=== PATIENT | male | born 1955 | race Caucasian/White ===

== ENCOUNTER 2020-11-18 11:03 | Observation (INO) | payer OTHER ==
[~2020-11-18] VITALS: Ht 177.8 cm; Wt 75.9 kg
[2020-11-18 11:58] LABS: HEMOGLOBIN 14.1 gm/dl (14.0-17.5); RED BLOOD COUNT 4.72 M/UL (4.20-5.50); WHITE BLOOD COUNT 19.2 K/UL (4.5-11.0)
[2020-11-18 12:35] LABS: BUN/CREATININE RATIO 20 (0-10)
[2020-11-18] MEDS ORDERED: ATORVASTATIN CA40 MG PO (19:30)
[2020-11-18] MEDS ORDERED: CLOPIDOGREL75 MG PO (19:30)
[2020-11-18] MEDS ORDERED: OXYCODON-ACETA1 EAC1 PO (19:31)
[2020-11-18] MEDS ORDERED: LISINOPRIL-HCT1 EAC1 PO (19:31)
[2020-11-18] MEDS ORDERED: GABAPENTIN400 MG PO (19:31)
[2020-11-18] MEDS ORDERED: NORTRIPTYLINE H50 MG PO (19:32)
[2020-11-18] MEDS ORDERED: VITAMIN C500 M4 PO (19:33)
[2020-11-19 05:53] LABS: HEMOGLOBIN 12.3 gm/dl (14.0-17.5)
[2020-11-19 05:58] LABS: RED BLOOD COUNT 4.18 M/UL (4.20-5.50); WHITE BLOOD COUNT 14.1 K/UL (4.5-11.0)
[2020-11-19 06:10] LABS: BUN/CREATININE RATIO 20 (0-10)
--- NOTE | 2020-11-19 19:17 | NUR ---
DR JACKSON NOTIFIED OF CT CHEST REPORT
[2020-11-20] MEDS ORDERED: LEVOFLOXACIN750 MG PO (14:26)
[2020-11-20] MEDS ORDERED: ELIQUIS5 MG PO (14:26)
== END 2020-11-20 16:13 | disposition home or self-care (01) ==
LOC: ER1 11:03 → M/S 15:40 → CDU 15:40 → M/S 19:13
PROVIDERS: Emergency Medicine; ADMIT Internal Medicine
DX: J18.9 Pneumonia, unspecified organism (principal); I26.93 Single subsegmental thrombotic pulmonary embolism without acute cor pulmonale; D72.829 Elevated white blood cell count, unspecified; R59.1 Generalized enlarged lymph nodes; I10 Essential (primary) hypertension; E78.5 Hyperlipidemia, unspecified; F17.210 Nicotine dependence, cigarettes, uncomplicated; Z82.49 Family history of ischemic heart disease and other diseases of the circulatory system; Z20.822 Contact with and (suspected) exposure to COVID-19; Z88.0 Allergy status to penicillin; Z79.01 Long term (current) use of anticoagulants; Z79.02 Long term (current) use of antithrombotics/antiplatelets; Z79.899 Other long term (current) drug therapy
CPT/HCPCS: 36415; 80048; 80053; 81001; 82550; 82553; 83605; 83690; 83735; 83874; 84484; 85025; 85610; 87040; 93005; 96365; 96375; 99285; G0378; J0456; J0696; J1650; J2270; J2405; J7030; Q9967; U0002

== ENCOUNTER → 2022-05-07 | Day surgery (SDC) | payer OTHER ==
[~2022-05-07] MED LIST: ATORVASTATIN CA40 MG PO; CLOPIDOGREL75 MG PO; ELIQUIS5 MG PO; GABAPENTIN400 MG PO; LEVOFLOXACIN750 MG PO; LISINOPRIL-HCT1 EAC1 PO; NORTRIPTYLINE H50 MG PO; OXYCODON-ACETA1 EAC1 PO; VITAMIN C500 M4 PO
== END | disposition home or self-care (01) ==
LOC: OR 06:26
DX: K59.03 Drug induced constipation (principal); D12.2 Benign neoplasm of ascending colon; D12.3 Benign neoplasm of transverse colon; K57.30 Diverticulosis of large intestine without perforation or abscess without bleeding; K64.1 Second degree hemorrhoids; I10 Essential (primary) hypertension; Z88.0 Allergy status to penicillin; Z88.8 Allergy status to other drugs, medicaments and biological substances; Z79.02 Long term (current) use of antithrombotics/antiplatelets
CPT/HCPCS: J2704; J7040